=== PATIENT | female | born 1965 | race Caucasian/White ===

== ENCOUNTER 2020-10-05 20:01 | Inpatient (IN) | payer BC ==
[~2020-10-05] VITALS: Ht 170.2 cm; Wt 74.8 kg
[~2020-10-05 20:01] MED LIST: ACETAMINOPHEN325 M1 PO; ATENOLOL100 MG PO; CYMBALTA60 MG PO; LYRICA75 MG PO; NAPROXEN500 MG PO; NORCO 10-325 T1 EACH PO
[2020-10-05 20:56] LABS: BASOPHILS # (AUTO) 0.1 (0.0-0.1); BASOPHILS % 0.5 % (0.0-1.0); EOSINOPHILS # (AUTO) 0.2 (0.0-0.4); EOSINOPHILS % 1.5 % (0.0-6.0); HEMATOCRIT 41.3 % (34.2-44.1); HEMOGLOBIN 14.2 g/dL (12.0-16.0); LYMPHOCYTES # (AUTO) 2.8 (1.0-3.2); LYMPHOCYTES % 26.9 % (18.0-39.1); MEAN CORPUSCULAR HEMOGLOBIN 30.7 pg (28-32); MEAN CORPUSCULAR HGB CONC 34.4 g/dL (31-35); MEAN CORPUSCULAR VOLUME 89.4 fL (81-99); MONOCYTES # (AUTO) 0.5 (0.2-0.8); MONOCYTES % 4.3 % (4.4-11.3); NEUTROPHILS # (AUTO) 6.9 (2.1-6.9); NEUTROPHILS % 66.4 % (38.7-80.0); PLATELET COUNT 282 x10e3/uL (140-360); RED BLOOD COUNT 4.62 x10e6/uL (3.6-5.1); RED CELL DISTRIBUTION WIDTH 12.2 % (11.7-14.4)
[2020-10-05 21:12] LABS: INR 0.92
[2020-10-05 21:13] LABS: PARTIAL THROMBOPLASTIN TIME 23.5 seconds (23.8-35.5)
[2020-10-05 21:16] LABS: ALBUMIN 3.7 g/dL (3.5-5.0); ALBUMIN/GLOBULIN RATIO 1.3 (0.8-2.0); CALCIUM 9.5 mg/dL (8.4-10.2); CREATININE, SERUM 1.36 mg/dL (0.57-1.11)
[2020-10-05 21:23] LABS: CREATINE KINASE MB 0.8 ng/mL (0-5.0)
[2020-10-05] MEDS ORDERED: MAGNESIUM SULF 1GRAM/DEXTROSE 100 ML IV PRN (21:30)
[2020-10-05] MEDS ORDERED: POTASSIUM CHLORIDE 20MEQ/100ML 200 ML IV PRN (21:30)
[2020-10-05] MEDS ORDERED: ONDANSETRON HCL INJ 2MG/ML 2ML 2 MG/ML VIAL IV PRN (21:30)
[2020-10-05] MEDS ORDERED: SODIUM CHLORIDE 0.9% 100 ML ONE (21:38)
[2020-10-05] MEDS ORDERED: SODIUM CHLORIDE 0.9% 1000ML 1,000 ML ONE (21:38)
[2020-10-05] MEDS ORDERED: INSULIN REGULAR, HUMAN 100 UNIT/1 ML 3ML VIAL ONE (21:38)
[2020-10-05 21:44] LABS: CLARITY,URINE CLEAR (CLEAR); COLOR,URINE YELLOW (YELLOW); KETONES,URINE NEGATIVE (NEGATIVE); LEUKOCYTE ESTERASE ,URINE NEGATIVE (NEGATIVE); NITRITE,URINE NEGATIVE (NEGATIVE); PROTEIN,URINE DIPSTICK NEGATIVE (NEGATIVE); URINE UROBILINOGEN 0.2 mg/dL (0.2 - 1)
[2020-10-05] MEDS: SODIUM CHLORIDE 0.9% 1000ML 1,000 ML IV SCH (22:05)
[2020-10-05] MEDS: INSULIN REGULAR, HUMAN 3ML VL 100 UNIT in SODIUM CHLORIDE 0.9% 100 ML IV SCH ×2 (22:05)
[2020-10-05 23:47] VITALS: BP 144/78
[2020-10-06] VITALS (10 sets, daily range): BP systolic 113–164; BP diastolic 59–78
[2020-10-06] MEDS ORDERED: TRAZODONE HCL50 MG PO (00:01)
[2020-10-06] MEDS ORDERED: NEURONTIN300 MG PO (00:01)
[2020-10-06] MEDS ORDERED: ADDERALL XR 3030 MG (00:02)
[2020-10-06] MEDS ORDERED: LITHOBID300 MG PO (00:02)
[2020-10-06] MEDS ORDERED: DEXTROSE 50% SYRINGE 50 ML IV ONE (01:46)
[2020-10-06] MEDS: SODIUM CHLORIDE 0.9% 1000ML 1,000 ML IV SCH ×4 (02:05→12:31)
[2020-10-06 02:07] LABS: ANION GAP 11.9 mmol/L (8-16); BLOOD UREA NITROGEN 23 mg/dL (7-26); BUN/CREATININE RATIO 29 (6-25); CALCIUM 9.2 mg/dL (8.4-10.2); CARBON DIOXIDE 18 mmol/L (22-29); CHLORIDE 113 mmol/L (98-107); CREATININE, SERUM 0.78 mg/dL (0.57-1.11); EST GLOMERULAR FILTRATION RATE > 60 ML/MIN (60-); MAGNESIUM 1.6 MG/DL (1.3-2.1); SODIUM 140 mmol/L (136-145)
[2020-10-06 02:11] LABS: GLUCOSE 57 mg/dL (74-118); POTASSIUM 2.9 mmol/L (3.5-5.1)
[2020-10-06] MEDS: DEXTROSE 5%/0.45% SOD CHL 1,000 ML IV SCH ×4 (02:17→23:12)
[2020-10-06] MEDS ORDERED: POTASSIUM CHLORIDE 20MEQ/100ML 100 ML ONE (02:29)
[2020-10-06] MEDS ORDERED: DEXTROSE 50% SYRINGE 50 ML IV PRN ×2 (05:00→14:45)
[2020-10-06 05:39] LABS: ANION GAP 13.2 mmol/L (8-16); BLOOD UREA NITROGEN 21 mg/dL (7-26); BUN/CREATININE RATIO 28 (6-25); CALCIUM 8.7 mg/dL (8.4-10.2); CARBON DIOXIDE 19 mmol/L (22-29); CHLORIDE 111 mmol/L (98-107); CREATININE, SERUM 0.76 mg/dL (0.57-1.11); EST GLOMERULAR FILTRATION RATE > 60 ML/MIN (60-); GLUCOSE 113 mg/dL (74-118); MAGNESIUM 1.7 MG/DL (1.3-2.1); POTASSIUM 3.2 mmol/L (3.5-5.1); SODIUM 140 mmol/L (136-145)
[2020-10-06 06:16] LABS: CREATINE KINASE MB 0.8 ng/mL (0-5.0)
[2020-10-06 06:33] LABS: CHOL/HDL RATIO 5.1 (3.0-3.6)
[2020-10-06] MEDS: INSULIN REGULAR, HUMAN 3ML VL 100 UNIT in SODIUM CHLORIDE 0.9% 100 ML IV SCH ×4 (07:30→12:34)
[2020-10-06] MEDS ORDERED: POTASSIUM CHLORIDE 20 MEQ TAB CR PO STA (08:22)
[2020-10-06] MEDS: GABAPENTIN 300 MG CAP PO SCH ×3 (09:54→23:11)
[2020-10-06 10:18] LABS: ANION GAP 13.3 mmol/L (8-16); BLOOD UREA NITROGEN 16 mg/dL (7-26); BUN/CREATININE RATIO 19 (6-25); CARBON DIOXIDE 21 mmol/L (22-29); CHLORIDE 109 mmol/L (98-107); CREATININE, SERUM 0.84 mg/dL (0.57-1.11); EST GLOMERULAR FILTRATION RATE > 60 ML/MIN (60-); GLUCOSE 249 mg/dL (74-118); MAGNESIUM 1.6 MG/DL (1.3-2.1); POTASSIUM 3.3 mmol/L (3.5-5.1); SODIUM 140 mmol/L (136-145)
[2020-10-06] MEDS: LITHIUM CARBONATE ER 300 MG TAB PO SCH ×2 (10:28→16:07)
[2020-10-06 14:47] LABS: ANION GAP 12.1 mmol/L (8-16); BLOOD UREA NITROGEN 14 mg/dL (7-26); BUN/CREATININE RATIO 20 (6-25); CALCIUM 8.3 mg/dL (8.4-10.2); CARBON DIOXIDE 20 mmol/L (22-29); CHLORIDE 113 mmol/L (98-107); CREATININE, SERUM 0.71 mg/dL (0.57-1.11); EST GLOMERULAR FILTRATION RATE > 60 ML/MIN (60-); MAGNESIUM 1.7 MG/DL (1.3-2.1); POTASSIUM 4.1 mmol/L (3.5-5.1); SODIUM 141 mmol/L (136-145)
[2020-10-06 14:49] LABS: GLUCOSE 40 mg/dL (74-118)
[2020-10-06 15:01] LABS: CREATINE KINASE 32 IU/L (29-168)
[2020-10-06 15:16] LABS: FREE T4 (FREE THYROXINE) 0.91 ng/dL (0.8-1.8); THYROID STIMULATING HORMONE 1.207 uIU/mL (0.350-4.940)
[2020-10-06] MEDS: INSULIN REGULAR, HUMAN 3ML VL 100 UNIT in SODIUM CHLORIDE 0.9% 100 ML 100 ML IV SCH ×2 (15:19)
[2020-10-06 18:48] LABS: ANION GAP 13.6 mmol/L (8-16); BLOOD UREA NITROGEN 15 mg/dL (7-26); BUN/CREATININE RATIO 17 (6-25); CARBON DIOXIDE 17 mmol/L (22-29); CHLORIDE 109 mmol/L (98-107); CREATININE, SERUM 0.88 mg/dL (0.57-1.11); EST GLOMERULAR FILTRATION RATE > 60 ML/MIN (60-); MAGNESIUM 1.6 MG/DL (1.3-2.1); POTASSIUM 3.6 mmol/L (3.5-5.1); SODIUM 136 mmol/L (136-145)
[2020-10-06 18:51] LABS: GLUCOSE 501 mg/dL (74-118)
[2020-10-06] MEDS: TRAZODONE HCL 50 MG TAB PO SCH (23:11)
[2020-10-07] VITALS (9 sets, daily range): BP systolic 109–150; BP diastolic 66–80
[2020-10-07 06:22] LABS: ANION GAP 11.3 mmol/L (8-16); BLOOD UREA NITROGEN 11 mg/dL (7-26); BUN/CREATININE RATIO 15 (6-25); CALCIUM 7.7 mg/dL (8.4-10.2); CARBON DIOXIDE 21 mmol/L (22-29); CHLORIDE 114 mmol/L (98-107); CREATININE, SERUM 0.75 mg/dL (0.57-1.11); EST GLOMERULAR FILTRATION RATE > 60 ML/MIN (60-); GLUCOSE 162 mg/dL (74-118); POTASSIUM 3.3 mmol/L (3.5-5.1); SODIUM 143 mmol/L (136-145)
[2020-10-07] MEDS: DEXTROSE 5%/0.45% SOD CHL 1,000 ML IV SCH ×2 (06:44→15:00)
[2020-10-07] MEDS: GABAPENTIN 300 MG CAP PO SCH ×3 (09:23→21:21)
[2020-10-07] MEDS: LITHIUM CARBONATE ER 300 MG TAB PO SCH ×2 (09:23→16:04)
[2020-10-07] MEDS ORDERED: ACETAMINOPHEN 325 MG TAB PO PRN (12:30)
[2020-10-07] MEDS: INSULIN REGULAR, HUMAN 3ML VL 100 UNIT in SODIUM CHLORIDE 0.9% 100 ML 100 ML IV SCH ×2 (16:04)
[2020-10-07] MEDS: INSULIN LISPRO 100 UNIT/1 ML 3ML VIAL SQ SCH ×2 (17:00→21:29)
[2020-10-07] MEDS ORDERED: INSULIN GLARGINE 100 UNITS/ML VIAL SQ SCH (21:00)
[2020-10-07] MEDS: TRAZODONE HCL 50 MG TAB PO SCH (21:21)
[2020-10-08] VITALS: BP 152/68
[2020-10-08] MEDS: DEXTROSE 5%/0.45% SOD CHL 1,000 ML IV SCH ×2 (00:42→08:23)
[2020-10-08 02:04] VITALS: BP 136/60
[2020-10-08 04:16] VITALS: BP 140/66
[2020-10-08 06:00] VITALS: BP 159/80
[2020-10-08 07:25] VITALS: BP 155/80
[2020-10-08 07:27] VITALS: BP 155/80
[2020-10-08 08:19] LABS: HEMATOCRIT 40.9 % (34.2-44.1); HEMOGLOBIN 13.1 g/dL (12.0-16.0); MEAN CORPUSCULAR HEMOGLOBIN 30.8 pg (28-32); MEAN CORPUSCULAR VOLUME 96.2 fL (81-99); PLATELET COUNT 209 x10e3/uL (140-360); RED BLOOD COUNT 4.25 x10e6/uL (3.6-5.1); RED CELL DISTRIBUTION WIDTH 12.7 % (11.7-14.4)
[2020-10-08] MEDS: LITHIUM CARBONATE ER 300 MG TAB PO SCH (08:23)
[2020-10-08] MEDS: INSULIN LISPRO 100 UNIT/1 ML 3ML VIAL SQ SCH ×4 (08:23→11:30)
[2020-10-08] MEDS: GABAPENTIN 300 MG CAP PO SCH (08:23)
[2020-10-08 08:52] LABS: ANION GAP 11.8 mmol/L (8-16); BLOOD UREA NITROGEN 12 mg/dL (7-26); BUN/CREATININE RATIO 13 (6-25); CALCIUM 8.6 mg/dL (8.4-10.2); CARBON DIOXIDE 22 mmol/L (22-29); CHLORIDE 110 mmol/L (98-107); CREATININE, SERUM 0.95 mg/dL (0.57-1.11); EST GLOMERULAR FILTRATION RATE > 60 ML/MIN (60-); GLUCOSE 359 mg/dL (74-118); POTASSIUM 3.8 mmol/L (3.5-5.1); SODIUM 140 mmol/L (136-145)
[2020-10-08 09:08] LABS: EOSINOPHILS % (MANUAL) 3 % (0-7); HYPOCHROMASIA SLIGHT; LYMPHOCYTES % (MANUAL) 27 % (19-48); MONOCYTES % (MANUAL) 5 % (3.4-9.0); NEUTROPHILS % (MANUAL) 63 % (40-74); PLATELET ESTIMATE ADEQUATE; PLATELET MORPHOLOGY COMMENT NORMAL; PROMYELOCYTES % (MANUAL) 1 % (0-0); RBC MORPHOLOGY COMMENT ABNORMAL
[2020-10-08] MEDS ORDERED: INSULIN LISPRO 100 UNIT/1 ML 3ML VIAL SQ SCH ×2 (16:30)
[2020-10-08] MEDS ORDERED: LANTUS 3ML100 UNITS/ SQ (16:39)
[2020-10-08] MEDS ORDERED: HUMALOG MI100 UNIT/2 SQ (16:41)
[2020-10-08] MEDS ORDERED: NOVOLOG100 UNIT/1 SC (16:41)
[2020-10-08] MEDS ORDERED: INSULIN GLARGINE 100 UNITS/ML VIAL SQ SCH (21:00)
== END 2020-10-08 18:15 | disposition home or self-care (01) | DRG 639 ==
LOC: ER 20:06 → ERHOLD 21:30 → IMCU 23:44
PROVIDERS: ADMIT Internal Medicine; ATTEND Internal Medicine
DX: E11.10 Type 2 diabetes mellitus with ketoacidosis without coma (principal); R07.9 Chest pain, unspecified; Z87.891 Personal history of nicotine dependence; G89.4 Chronic pain syndrome; Z20.822 Contact with and (suspected) exposure to COVID-19; F32.9 Major depressive disorder, single episode, unspecified; F17.200 Nicotine dependence, unspecified, uncomplicated; E86.0 Dehydration
CPT/HCPCS: 36415; 71045; 80048; 80053; 80061; 81001; 82550; 82553; 82948; 83036; 83735; 83880; 84439; 84443; 84484; 85007; 85025; 85027; 85379; 85610; 85730; 93005; 96372; 99284; J1815; J1817; J3480; J7030; J7050; J7799; U0002

== ENCOUNTER 2022-11-14 06:11 | Observation (INO) | payer BC ==
[~2022-11-14] VITALS: Ht 170.2 cm; Wt 54.4 kg
[~2022-11-14 06:11] MED LIST changes: +ADDERALL XR 3030 MG; +HUMALOG MI100 UNIT/2 SQ; +LANTUS 3ML100 UNITS/ SQ; +LITHOBID300 MG PO; +NEURONTIN300 MG PO; +NOVOLOG100 UNIT/1 SC; +TRAZODONE HCL50 MG PO
[2022-11-14] MEDS ORDERED: SODIUM CHLORIDE 0.9% 1000ML 1,000 ML IV STA ×2 (06:52→07:48)
[2022-11-14 07:17] LABS: BASOPHILS % 0.4 % (0.0-1.0); EOSINOPHILS # (AUTO) 0.2 (0.0-0.4); EOSINOPHILS % 1.9 % (0.0-6.0); HEMATOCRIT 44.6 % (34.2-44.1); HEMOGLOBIN 14.9 g/dL (12.0-16.0); LYMPHOCYTES # (AUTO) 1.8 (1.0-3.2); MEAN CORPUSCULAR HEMOGLOBIN 30.2 pg (28-32); MEAN CORPUSCULAR HGB CONC 33.4 g/dL (31-35); MEAN CORPUSCULAR VOLUME 90.5 fL (81-99); MONOCYTES # (AUTO) 0.6 (0.2-0.8); MONOCYTES % 6.4 % (4.4-11.3); NEUTROPHILS # (AUTO) 6.4 (2.1-6.9); NEUTROPHILS % 70.9 % (38.7-80.0); PLATELET COUNT 282 x10e3/uL (140-360); RED BLOOD COUNT 4.93 x10e6/uL (3.6-5.1); RED CELL DISTRIBUTION WIDTH 12.4 % (11.7-14.4)
[2022-11-14 07:27] LABS: AMPHETAMINES SCREEN,URINE NEGATIVE (NEGATIVE); BENZODIAZEPINES SCREEN,URINE NEGATIVE (NEGATIVE); PHENCYCLIDINE SCREEN,URINE NEGATIVE (NEGATIVE)
[2022-11-14 07:36] LABS: CLARITY,URINE CLEAR (CLEAR); COLOR,URINE YELLOW (YELLOW)
[2022-11-14 07:37] LABS: KETONES,URINE NEGATIVE (NEGATIVE); LEUKOCYTE ESTERASE ,URINE NEGATIVE (NEGATIVE); NITRITE,URINE NEGATIVE (NEGATIVE); PROTEIN,URINE DIPSTICK NEGATIVE (NEGATIVE); URINE UROBILINOGEN 0.2 mg/dL (0.2 - 1)
[2022-11-14 07:44] LABS: INR 0.92; PROTHROMBIN TIME 12.9 seconds (11.9-14.5)
[2022-11-14 07:55] LABS: ALANINE AMINOTRANSFERASE 59 IU/L (0-55); ALBUMIN 3.6 g/dL (3.5-5.0); ALBUMIN/GLOBULIN RATIO 1.1 (0.8-2.0); ALKALINE PHOSPHATASE 82 IU/L (40-150); ANION GAP 16.3 mmol/L (8-16); BLOOD UREA NITROGEN 29 mg/dL (7-26); BUN/CREATININE RATIO 21 (6-25); CALCIUM 9.3 mg/dL (8.4-10.2); CARBON DIOXIDE 24 mmol/L (22-29); CHLORIDE 95 mmol/L (98-107); CREATINE KINASE 23 IU/L (29-168); CREATININE, SERUM 1.35 mg/dL (0.57-1.11); EPITHELIAL CELLS,URINE RARE /LPF; POTASSIUM 4.3 mmol/L (3.5-5.1); RBC,URINE 0-5 /HPF (0-5); SODIUM 131 mmol/L (136-145); WBC,URINE (MAN) 0-5 /HPF (0-5)
[2022-11-14] MEDS ORDERED: INSULIN REGULAR, HUMAN 100 UNIT/1 ML IV ONE (08:00)
[2022-11-14] MEDS ORDERED: DEXTROSE 50% SYRINGE 50 ML IV PRN (08:15)
[2022-11-14] MEDS ORDERED: ONDANSETRON HCL INJ 2MG/ML 2ML 2 MG/ML VIAL IV PRN (08:15)
[2022-11-14 08:16] LABS: THYROID STIMULATING HORMONE 2.413 uIU/mL (0.350-4.940)
[2022-11-14 08:26] LABS: GLUCOSE 761 mg/dL (74-118)
[2022-11-14] MEDS ORDERED: ACETAMINOPHEN 325 MG TAB PO PRN (09:00)
[2022-11-14] MEDS: SODIUM CHLORIDE 0.9% 1000ML 1,000 ML IV SCH ×2 (09:30→16:15)
[2022-11-14 11:16] VITALS: BP 140/75; PULSE 65; RESP 18; TEMP 98.3; O2SAT 99
[2022-11-14 12:00] VITALS: BP 140/75; PULSE 65; RESP 18; TEMP 98.3; O2SAT 99
[2022-11-14] MEDS ORDERED: METOCLOPRAMIDE HCL 10 MG/2ML VIAL ONE (12:52)
[2022-11-14] MEDS ORDERED: HYOSCYAMINE SULFATE 0.5 MG/ML INJ ONE (12:52)
[2022-11-14] MEDS ORDERED: LIDOCAINE HCL 2% LOCAL INJ 5 ML SDV VIAL INJ ONE (12:52)
[2022-11-14] MEDS ORDERED: PROPOFOL IV EMULSION 10 MG/ML 20 ML VIAL ONE (12:52)
[2022-11-14] MEDS: MULTIVITAMINS/MINERALS TAB PO SCH (13:15)
[2022-11-14] MEDS: INSULIN GLARGINE 100 UNITS/ML VIAL SQ SCH ×2 (13:17→20:48)
[2022-11-14] MEDS: INSULIN LISPRO 100 UNIT/1 ML 3ML VIAL SQ SCH ×3 (13:18→20:47)
[2022-11-14 14:52] LABS: CHOL/HDL RATIO 4.3 (3.0-3.6)
[2022-11-14 16:53] VITALS: BP 148/94; PULSE 69; RESP 18; TEMP 99.2; O2SAT 100
[2022-11-14 20:00] VITALS: BP 150/88; PULSE 73; RESP 18; TEMP 98.1; O2SAT 100
[2022-11-14 20:24] VITALS: BP 150/88; PULSE 73; RESP 18; TEMP 98.1; O2SAT 100
[2022-11-14] MEDS: TRAZODONE HCL 50 MG TAB PO SCH (20:35)
[2022-11-14] MEDS: ACETAMINOPHEN/CODEINE 300MG - 30MG TAB PO PRN (21:01)
[2022-11-14] MEDS ORDERED: LISINOPRIL30 MG PO (23:30)
[2022-11-15] VITALS (8 sets, daily range): BP systolic 125–177; BP diastolic 60–87; PULSE 59–81; RESP 17–19; TEMP 97.4–98.3; O2SAT 96–100
[2022-11-15] MEDS: MELATONIN 3 MG TAB PO SCH ×2 (00:11→21:32)
[2022-11-15] MEDS ORDERED: BISACODYL 5 MG TAB EC PO ONE ×2 (00:30→01:15)
[2022-11-15 00:41] LABS: CREATINE KINASE 33 IU/L (29-168)
[2022-11-15] MEDS: SODIUM CHLORIDE 0.9% 1000ML 1,000 ML IV SCH ×3 (02:40→17:38)
[2022-11-15] MEDS ORDERED: CITRATE OF MAGNESIA 300ML BOTTLE PO ONE ×2 (05:00→07:00)
[2022-11-15 05:40] LABS: BASOPHILS % 0.5 % (0.0-1.0); EOSINOPHILS # (AUTO) 0.2 (0.0-0.4); EOSINOPHILS % 2.1 % (0.0-6.0); HEMATOCRIT 38.9 % (34.2-44.1); HEMOGLOBIN 12.9 g/dL (12.0-16.0); LYMPHOCYTES # (AUTO) 2.2 (1.0-3.2); LYMPHOCYTES % 29.5 % (18.0-39.1); MEAN CORPUSCULAR HEMOGLOBIN 30.4 pg (28-32); MEAN CORPUSCULAR HGB CONC 33.2 g/dL (31-35); MEAN CORPUSCULAR VOLUME 91.7 fL (81-99); MONOCYTES # (AUTO) 0.6 (0.2-0.8); MONOCYTES % 8.2 % (4.4-11.3); NEUTROPHILS # (AUTO) 4.3 (2.1-6.9); NEUTROPHILS % 59.3 % (38.7-80.0); PLATELET COUNT 200 x10e3/uL (140-360); RED BLOOD COUNT 4.24 x10e6/uL (3.6-5.1); RED CELL DISTRIBUTION WIDTH 12.5 % (11.7-14.4)
[2022-11-15 06:12] LABS: ALBUMIN 2.8 g/dL (3.5-5.0); ALBUMIN/GLOBULIN RATIO 1.3 (0.8-2.0); ANION GAP 11.4 mmol/L (8-16); CALCIUM 8.2 mg/dL (8.4-10.2); CREATININE, SERUM 0.73 mg/dL (0.57-1.11); POTASSIUM 3.4 mmol/L (3.5-5.1)
[2022-11-15 06:48] LABS: CREATINE KINASE 34 IU/L (29-168)
[2022-11-15] MEDS ORDERED: POTASSIUM CHLORIDE 20 MEQ TAB CR PO ONE (08:30)
[2022-11-15] MEDS ORDERED: ONDANSETRON HCL 4 MG ORAL DISINTEGRATING TAB PO PRN (09:00)
[2022-11-15] MEDS: MULTIVITAMINS/MINERALS TAB PO SCH (09:17)
[2022-11-15] MEDS: FENOFIBRATE 145 MG TAB PO SCH (09:17)
[2022-11-15] MEDS: ACETAMINOPHEN/CODEINE 300MG - 30MG TAB PO PRN ×2 (09:25→21:32)
[2022-11-15] MEDS: INSULIN LISPRO 100 UNIT/1 ML 3ML VIAL SQ SCH ×3 (11:46→22:39)
[2022-11-15] MEDS ORDERED: FENTANYL CITRATE/PF 100MCG/2 ML INJ ONE (12:21)
[2022-11-15] MEDS ORDERED: PROPOFOL IV EMULSION 50 ML IV ONE (14:45)
[2022-11-15] MEDS: ATORVASTATIN 40 MG TAB PO SCH (21:31)
[2022-11-15] MEDS: LITHIUM CARBONATE ER 300 MG TAB PO SCH (21:33)
[2022-11-15] MEDS: VENLAFAXINE HCL 37.5 MG TAB PO SCH (21:33)
[2022-11-15] MEDS: TRAZODONE HCL 50 MG TAB PO SCH (21:33)
[2022-11-15] MEDS: INSULIN GLARGINE 100 UNITS/ML VIAL SQ SCH (22:38)
[2022-11-16] VITALS (8 sets, daily range): BP systolic 132–201; BP diastolic 58–95; PULSE 69–101; RESP 17–18; TEMP 97.9–98.6; O2SAT 98–100
[2022-11-16] MEDS: SODIUM CHLORIDE 0.9% 1000ML 1,000 ML IV SCH ×3 (00:15→17:08)
[2022-11-16] MEDS: INSULIN LISPRO 100 UNIT/1 ML 3ML VIAL SQ SCH ×4 (08:34→22:02)
[2022-11-16] MEDS: ACETAMINOPHEN/CODEINE 300MG - 30MG TAB PO PRN ×2 (08:36→15:49)
[2022-11-16] MEDS: VENLAFAXINE HCL 37.5 MG TAB PO SCH ×2 (08:37→17:08)
[2022-11-16] MEDS: MULTIVITAMINS/MINERALS TAB PO SCH (08:37)
[2022-11-16] MEDS: LITHIUM CARBONATE ER 300 MG TAB PO SCH ×2 (08:37→21:47)
[2022-11-16] MEDS: FENOFIBRATE 145 MG TAB PO SCH (08:37)
[2022-11-16] MEDS: CIPROFLOXACIN-DEXAMETHASONE (OTIC) 7.5 ML BOTTLE OT SCH ×2 (11:12→17:08)
[2022-11-16 11:22] LABS: MAGNESIUM 1.8 MG/DL (1.3-2.1); PHOSPHORUS 2.3 MG/DL (2.3-4.7); POTASSIUM 3.4 mmol/L (3.5-5.1)
[2022-11-16] MEDS: ACETAMIN/BUTALBITAL/CAFFEINE TAB PO PRN (21:47)
[2022-11-16] MEDS: MELATONIN 3 MG TAB PO SCH (21:47)
[2022-11-16] MEDS: TRAZODONE HCL 50 MG TAB PO SCH (21:47)
[2022-11-16] MEDS: ATORVASTATIN 40 MG TAB PO SCH (21:47)
[2022-11-16] MEDS: INSULIN GLARGINE 100 UNITS/ML VIAL SQ SCH (22:03)
[2022-11-17] VITALS (9 sets, daily range): BP systolic 123–178; BP diastolic 69–88; PULSE 58–72; RESP 18–20; TEMP 97–98.4; O2SAT 98–100
[2022-11-17] MEDS: SODIUM CHLORIDE 0.9% 1000ML 1,000 ML IV SCH ×3 (00:15→15:40)
[2022-11-17] MEDS: ACETAMIN/BUTALBITAL/CAFFEINE TAB PO PRN ×3 (04:48→21:33)
[2022-11-17] MEDS: INSULIN LISPRO 100 UNIT/1 ML 3ML VIAL SQ SCH ×4 (07:43→21:45)
[2022-11-17] MEDS: VENLAFAXINE HCL 37.5 MG TAB PO SCH ×2 (07:57→16:21)
[2022-11-17] MEDS: MULTIVITAMINS/MINERALS TAB PO SCH (07:57)
[2022-11-17] MEDS: CIPROFLOXACIN-DEXAMETHASONE (OTIC) 7.5 ML BOTTLE OT SCH ×2 (07:57→16:21)
[2022-11-17] MEDS: LITHIUM CARBONATE ER 300 MG TAB PO SCH ×2 (07:58→21:33)
[2022-11-17] MEDS: FENOFIBRATE 145 MG TAB PO SCH (07:58)
[2022-11-17 13:33] LABS: ANION GAP 10.8 mmol/L (8-16); CALCIUM 8.8 mg/dL (8.4-10.2); CREATININE, SERUM 0.8 mg/dL (0.57-1.11); POTASSIUM 3.8 mmol/L (3.5-5.1)
[2022-11-17] MEDS: ACETAMINOPHEN/CODEINE 300MG - 30MG TAB PO PRN (18:52)
[2022-11-17] MEDS: MELATONIN 3 MG TAB PO SCH (21:33)
[2022-11-17] MEDS: TRAZODONE HCL 50 MG TAB PO SCH (21:34)
[2022-11-17] MEDS: ATORVASTATIN 40 MG TAB PO SCH (21:34)
[2022-11-17] MEDS: INSULIN GLARGINE 100 UNITS/ML VIAL SQ SCH (21:46)
[2022-11-18] VITALS: BP 119/69; PULSE 65; RESP 18; TEMP 97.9; O2SAT 99
[2022-11-18 04:00] VITALS: BP 138/80; PULSE 58; RESP 18; TEMP 97.9; O2SAT 100
[2022-11-18] MEDS: SODIUM CHLORIDE 0.9% 1000ML 1,000 ML IV SCH ×2 (04:39→08:40)
[2022-11-18] MEDS: ACETAMIN/BUTALBITAL/CAFFEINE TAB PO PRN (05:19)
[2022-11-18] MEDS ORDERED: Venlafaxine Hcl PO (08:05)
[2022-11-18] MEDS ORDERED: Insulin Glargine SQ (08:05)
[2022-11-18] MEDS ORDERED: Insulin Lispro SQ (08:05)
[2022-11-18] MEDS ORDERED: ATORVASTATIN CA40 MG PO (08:05)
[2022-11-18] MEDS ORDERED: TRAZODONE HCL50 MG PO (08:05)
[2022-11-18] MEDS ORDERED: PANTOPRAZOLE SO40 MG PO (08:05)
[2022-11-18] MEDS ORDERED: LITHIUM CARBON300 M2 PO (08:05)
[2022-11-18] MEDS ORDERED: CIPRODEX OTIC7.5 ML OT (08:05)
[2022-11-18] MEDS ORDERED: FENOFIBRATE145 MG PO (08:05)
[2022-11-18] MEDS: MULTIVITAMINS/MINERALS TAB PO SCH (08:39)
[2022-11-18] MEDS: LITHIUM CARBONATE ER 300 MG TAB PO SCH (08:40)
[2022-11-18] MEDS: VENLAFAXINE HCL 37.5 MG TAB PO SCH (08:40)
[2022-11-18] MEDS: FENOFIBRATE 145 MG TAB PO SCH (08:40)
[2022-11-18] MEDS: CIPROFLOXACIN-DEXAMETHASONE (OTIC) 7.5 ML BOTTLE OT SCH (08:41)
[2022-11-18 08:45] VITALS: BP 138/80; PULSE 58; RESP 18; TEMP 97.9; O2SAT 100
[2022-11-18] MEDS: INSULIN LISPRO 100 UNIT/1 ML 3ML VIAL SQ SCH (08:46)
[2022-11-18 09:04] VITALS: BP 155/65; PULSE 67; RESP 18; TEMP 98.7; O2SAT 99
[2022-11-18] MEDS ORDERED: PANTOPRAZOLE SOD 40 MG TABEC PO SCH (16:30)
== END 2022-11-18 09:35 | disposition home or self-care (01) ==
LOC: ER 06:18 → ERHOLD 08:11 → MED/SURG2 11:18
PROVIDERS: ADMIT Internal Medicine; ATTEND Internal Medicine
DX: E11.65 Type 2 diabetes mellitus with hyperglycemia (principal); Z79.4 Long term (current) use of insulin; K20.90 Esophagitis, unspecified without bleeding; K29.70 Gastritis, unspecified, without bleeding; D12.3 Benign neoplasm of transverse colon; R63.4 Abnormal weight loss; Z68.1 Body mass index [BMI] 19.9 or less, adult; N17.9 Acute kidney failure, unspecified; E87.1 Hypo-osmolality and hyponatremia; F32.2 Major depressive disorder, single episode, severe without psychotic features; E87.6 Hypokalemia; K22.2 Esophageal obstruction; K44.9 Diaphragmatic hernia without obstruction or gangrene; K57.30 Diverticulosis of large intestine without perforation or abscess without bleeding; R13.10 Dysphagia, unspecified; I10 Essential (primary) hypertension
CPT/HCPCS: 0223U; 36415 ×5; 43239; 43499; 45385; 70450; 71045; 80048; 80053 ×2; 80061; 80178; 80307; 81001; 82550 ×2; 82948 ×5; 83036; 83735 ×2; 84100; 84132; 84134; 84443; 84484 ×2; 85025 ×2; 85610; 85730; 87086; 88305; 88342; 93005; 96372 ×2; 97116 ×2; 97162; 99284; C9113 ×4; G0378 ×5; J1815; J1980; J2001; J2704 ×2; J2765; J3010; J7030 ×4; 43450; 45378; 45380